=== PATIENT | female | born 1935 | race Caucasian/White ===

== ENCOUNTER → 2023-09-04 13:35 | Outpatient (REF) | payer OTHER, SELFPAY | LOC: MRI 3T 13:35 | PROVIDERS: ATTENDING PHYSICIAN Psychiatry & Neurology Neurology; FAMILY PHYSICIAN Internal Medicine | DX: R44.1 Visual hallucinations (principal); R41.3 Other amnesia; G44.89 Other headache syndrome | CPT/HCPCS: 70551 ==

== ENCOUNTER 2025-03-14 17:56 | Inpatient (IN) | payer OTHER, SELFPAY ==
[2025-03-14 13:07] VITALS: BP 180/45
[2025-03-14] MEDS: ADACEL 0.5 ML IM (14:10)
[2025-03-14 16:00] VITALS: BP 164/59
--- NOTE | 2025-03-14 16:03 | ED.GENMED ---
History of Present Illness
General
Chief Complaint: Fall
Time Seen by Provider: 03/14/25 13:08
Nursing documentation reviewed up to this point in time: agreed with
History of Present Illness
History of Present Illness:
89-year-old female brought to the ER by EMS for evaluation after she fell. Patient is unsure of whether she tripped or slipped. She did not lose consciousness although she did strike her head. She was wearing her sunglasses at time of impact.
She denies headache. No change in vision. No vomiting. She reports pain and tingling to her left upper extremity. She reports that she had a significant injury in her youth to her elbow and at some point was told that it was fortunate her arm
was not amputated. She does have a prior history of fracture to the left wrist also. She is typically able to range her arm and ambulate independently. She is not on any blood thinners. She denies any pain to her lower extremities. She had been
feeling well prior to injury today.
Review of Systems
Review of Systems
Allergies reviewed?: Yes
Phy Exam
Physical Exam
Physical Exam:
Patient is awake, alert, appears uncomfortable but in no acute distress, 2 cm irregular laceration present above left eyebrow with vigorous arterial bleeding, controlled with direct pressure, mild ecchymosis surrounding the left eye, PERRL, EOMI,
mucous membranes moist, dentition intact, no pain with mouth opening, no pain on palpation of cervical spine, heart regular rate and rhythm without murmurs or ectopy, lungs are clear to auscultation without wheezes rales or rhonchi, abdomen is soft
and nontender, left elbow with significant deformity and diffuse pain on palpation, ecchymosis present over the dorsal elbow, chronic appearing deformity present to the left wrist which is nontender on palpation, brisk cap refill present to the
digits of the left hand with intact sensation to light touch, right upper extremity is normal in comparison, pelvis is stable to rock, moving bilateral lower extremities without any pain or limitation, GCS is 15
Course
Orders/Labs/Results
Orders:
Orders
03/14/25 Breakfast
Regular
03/14/25 13:00
Lidocaine/Epinephrine/Tetracai [Let Topical Anesthetic Gel] 3 ml .ROUTE .STK-MED ONE
03/14/25 13:39
CT Cervical Spine W/o Iv Contr Urgent
Comment:
Reason For Exam: trauma
CT Facial Bones W/o Iv Contras Urgent
Comment:
Reason For Exam: trauma
CT Head W/o Iv Contrast Urgent
Comment:
Reason For Exam: trauma
CR Elbow - Left Min 2 View Urgent
Reason For Exam: trauma
CR Wrist - Left Min 3 Views Urgent
Reason For Exam: trauma
03/14/25 13:40
Tetanus/Diphth/Acelpertussis [Adacel] 0.5 ml IM .ONCE ONE
03/14/25 16:04
Morphine Sulfate 2 mg IV NOW STA
03/14/25 16:39
Consult Orthopedic [ORTHOPEDIC CONSULT] Urgent
Consulting Provider: Angel Alfred
Was physician already notified: Yes
03/14/25 16:57
Complete Blood Count/No Diff Urgent
Comprehensive Metabolic Panel Urgent
03/14/25 17:[address] Non Medication Order As Directed
Physician Order: please complete the med rec. thanks
03/14/25 17:22
Admit/Transfer Patient As Directed
Co-Sign Provider:
Level of Care: Inpatient admission
Assign to:: Medical/Surgical
Physician / Group: elma
Diagnosis: olecranon fracture
Reason for Hospitalization: olecranon fracture
Expected length of stay greater than two midnights?: Yes
ELOS- Estimated Length of Stay in days: 3
I certify the patient meets the requirements for IP care: Yes
PRN Pain Medication Management As Directed
May give lesser potent ordered pain med per pt: Yes
preference::
Protocol:: Medication orders for pain may be administered in a
manner that supports deferring to patient preference
when the pt is:
- Requesting an ordered lesser potent pain medication.
Least to most potent pain medications are defined
as: acetaminophen < NSAID < tramadol < opioids
(morphine, oxycodone, hydromorphone).
- Requesting a lesser dose of the same medication IF
ORDERED.
- Requesting a less intrusive route of administration
if both routes are prescribed by the provider (PO <
IV).
03/14/25 17:23
Code Status As Directed
Resuscitation Status: Full Code
03/14/25 17:27
Elbow, 2 View, Right [CR Elbow - Right Min 2 View] Urgent
Comment:
Reason For Exam: post reduction
Abnormal Lab Results
03/14/25
16:57
WBC 12.2 H 10^3/uL
(4.8-10.8)
RBC 3.71 L 10^6/uL
(4.20-5.40)
Hgb 10.7 L g/dL
(12.0-16.0)
Hct 30.8 L %
(37.0-47.0)
03/14/25 16:57
Vital Signs
Initial and Last Documented VS:
Initial Vital Signs
Pulse Resp BP Pulse Ox
64 16 180/45 97
03/14/25 13:07 03/14/25 13:07 03/14/25 13:07 03/14/25 13:07
Last Documented Vital Signs
Pulse Resp BP Pulse Ox
68 18 164/59 97
03/14/25 16:00 03/14/25 16:00 03/14/25 16:00 03/14/25 16:04
Procedures
Laceration Closure
Left Upper Face:
Status of Wound: clean
Size of Wound in cm: 2.5
Description of Wound Edges: flap-well vascularized
Preparation: cleaned with soap & water and cleaned with saline
Anesthesia: 1% Lidocaine with epi and Topical-LET
Revision/Debridement: routine- no revision
Wound exploration: explored to base- no FB
Type of Closure: single layer closure and running stitch
Skin Closure Material: 5-0 nylon
Number of sutures: 11
Additional information:
Bleeding controlled after wound closed
Joint/Fracture Reduction
Left Elbow:
Indication for procedure:: Fracture dislocation
Procedure completed by: Myself
Anesthesia/sedation: 1% Lidocaine (10 cc hematoma block)
Injury was: closed
Further treatement: needs further treatment
Post reduction exam: unstable
Capillary Refill: normal
Normal distal neurovascular exam?: Yes
Additional information:
Traction countertraction applied with perceived unsuccessful attempt in reduction. Posterior splint and sling then applied
MDM/Problems Addressed
Differential Diagnosis Includes:
Differential diagnosis to consider but not limited to sprain, strain, fracture, occult intracranial injury, occult C-spine fracture along with other etiologies considered
Chronic conditions affecting care:
Hypertension, advanced age
*Radiology
Radiology exam reviewed: preliminary read by ED provider (I independently viewed and interpreted x-ray of the left elbow showing displaced olecranon fracture with dislocation of the humerus. I independently viewed and interpreted x-rays of the left
wrist showing chronic deformity, no fracture)
*Pulse Oximetry
SaO2: 97
Oxygen Mode of Delivery: Room air
Patient hypoxic: no
*Critical Care Note
Total Time (30-74mins, 75-104mins- exclusive of procedures): Not Applicable
Update Note
Update Note:
Patient tolerated laceration repair well. Once x-rays results available, I discussed with patient and daughter present bedside need for admission for surgical repair. I was able to speak with on-call surgeon, Dr. Alfred, to review x-ray images.
He would advise attempted reduction but would place patient on the OR schedule for tomorrow. I reviewed this information with the hospitalist, who came to evaluate the patient as I was completing splinting for the patient. Patient tolerated
procedure well. Pain controlled with morphine administered.
ED Attending Note
-
Portions of this chart may have been created with voice recognition software.� Occasional wrong word or��sound alike� substitutions may have occurred due to the inherent limitations of voice recognition software.
Discharge Plan
Departure
Patient Disposition: Admit
Date of Disposition: 03/14/25
Time of Disposition: 16:40
Presentation/result/management discussed w/ accepting MD/DO: Hospitalist
Discharge Problem:
Closed fracture dislocation of elbow, Facial laceration, CHI (closed head injury)
Prescriptions:
No Action
lisinopril 10 mg tablet
10 mg PO DAILY
hydrochlorothiazide 25 mg tablet
25 mg PO DAILY
mirtazapine 7.5 mg tablet
7.5 mg PO HS
Referrals:
Martin Morrison MD [Family Provider, Internal Medicine]
Interventions
Interventions:
*Risk Screen - Suicide Last Done: 03/14/25 14:00
*General Assessment Last Done: 03/14/25 14:00
*Neglect/Abuse Screening Last Done: 03/14/25 14:00
*ED- Fall Risk Assessment Last Done: 03/14/25 14:00
ED-Musculoskeletal Assessment Last Done: 03/14/25 14:00
ED- Neurological Assessment Last Done: 03/14/25 14:00
ED-Skin Assessment Last Done: 03/14/25 14:00
Discharge Date and Time
Print Language: PERSIAN
[2025-03-14] MEDS: MORPHINE SULFATE 2 MG IV ×2 (16:51→22:43)
--- NOTE | 2025-03-14 17:03 | HPS.HSE ---
Family Physician
-
Family Physician: Martin Morrison
Chief Complaint
-
fall
History of Present Illness
89-year-old female with PMH For HTN presented to us s/p fall. Patient tripped and fell. She hit her head on the floor. she did not lose consciousness. She denies headache. No change in vision. No vomiting. She reports pain and tingling to her
left upper extremity. Patient denied any fever, chills, cough, congestion. Patient denied any chest pain or short of breath. Patient denied any abdominal pain, nausea, vomiting or diarrhea. Patient denied dysuria hematuria.
Patient received dose of morphine, tetanus in ER. Admitting for further management
Medical History
Past Medical History
Past Medical History: Reports Other
Additional Past Medical History:
Hypertension, depression, osteopenia, allergic rhinitis, cervical radiculitis, hypertension, cataract, concussion
Past Surgical History: Reports Other
Additional Past Surgical History:
Appendectomy, knee surgery
Social History
Tobacco: Non-smoker
Alcohol: None
Drug: None
Living: Assisted Living
Family History
Family History: Not pertinent
Allergies / Home Medications
Allergies reflects when Allergies were last updated in [facility].
Home Medications with original date entered in [facility]
Allergy/Medication List:
Allergies
Allergy/AdvReac Type Severity Reaction Status Date / Time
Sulfa (Sulfonamide Allergy Unknown Unknown Verified 03/14/25 13:12
Antibiotics)
Review of Systems
-
Constitutional: Reports No Symptoms
EENT: Reports No Symptoms
Respiratory: Reports No Symptoms
Cardiac: Reports No Symptoms
Abdomen/GI: Reports No Symptoms
: Reports No Symptoms
Musculoskeletal: Reports Other (Left arm pain)
Skin: Reports No Symptoms
Neurological: Reports No Symptoms
Endocrine: Reports No Symptoms
Hematologic/Lymphatic: Reports No Symptoms
Psych: Reports No Symptoms
Physical Exam
Vital Signs
Vital Signs
Pulse Resp BP Pulse Ox
68 18 164/59 97
03/14/25 16:00 03/14/25 16:00 03/14/25 16:00 03/14/25 16:04
Physical Exam
General: Well Developed, Well Nourished and No Apparent Distress
HEENT: NormoCephalic, Moist mucous membranes and Atraumatic
Respiratory: Clear
Cardiac: S1/S2 and Regular Rhythm; No Murmur or Rub
GI: Soft, Non Tender, Non Distended and Normal Bowel Sounds; No Organomegaly
Rectal: Deferred by Provider
Musculoskeletal: No Clubbing, No Cyanosis, No Edema and Other (dressing the forehead, sling on left arm )
Skin: No Rash
Neuro: Nonfocal/grossly intact
Data Reviewed
-
Diagnostic Radiology: Report Reviewed by me
CT Scan: Report Reviewed by me
Impression/Plan
-
# Acute displaced intra-articular fracture of the olecranon
- Orthopedics consulted
-Patient received a dose of tetanus in ER
-Tylenol, Ultram for pain
-PT/OT consult
-Will keep patient n.p.o. after midnight for possible surgical intervention in the morning
- Wrist x-ray with impression Moderate soft tissue swelling in the ulnar and dorsal left wrist.
2. Chronic healed fracture of the distal radial metaphysis.
3. Chronic nonunited fracture of the ulnar styloid.
4. 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
5. Scapholunate ligament tear.
- Head CT with impression No CT evidence for acute intracranial hemorrhage.
2. MODERATE BILATERAL TEMPORAL LOBE VOLUME LOSS suggesting a chronic neurodegenerative disease (possibly Alzheimer's dementia).
3. Mild white matter leukoaraiosis in both cerebral hemispheres.
- Facial bone CT with impression No CT evidence for acute intracranial hemorrhage.
2. MODERATE BILATERAL TEMPORAL LOBE VOLUME LOSS suggesting a chronic neurodegenerative disease (possibly Alzheimer's dementia).
3. Mild white matter leukoaraiosis in both cerebral hemispheres.
- Elbow x-ray with impression of Acute posterior dislocation of the left elbow.
2. Acute displaced intra-articular fracture of the olecranon.
3. Large acute soft tissue laceration posterior to the olecranon.
- Cervical spine CT with impression of Moderate kyphosis at C6/C7.
2. 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
3. Severe right-sided facet joint arthrosis at C4/C5 causing severe right neural foraminal narrowing. 4 mm anterolisthesis of C4 on C5.
4. Moderate left-sided facet joint arthrosis at C3/C4 causing severe left neural foraminal narrowing.
5. Mild multilevel cervical spinal cord compression and central canal stenosis.
# Essential hypertension
- Metoprolol, lisinopril continued
- Hold HCTZ
# DVT prophylaxis
- SCDs
# CODE STATUS
- Full code
[2025-03-14 17:20] LABS: Hematocrit 30.8 % (37.0-47.0); Hemoglobin 10.7 g/dL (12.0-16.0); Mean Corp Hgb Conc. 34.7 g/dL (33.0-37.0); Mean Corpuscular Volume 83.0 fL (81.0-99.0); Platelet Count 270 10^3/uL (130-400); Red Cell Dist. Width 14.1 % (11.5-14.5)
--- NOTE | 2025-03-14 17:30 | W.PN.UPDATE ---
Update Note
Progress Note Update
I have personally examined the patient and agree with H&P written on the same date. In addition:
89yo F with PMHX of dementia, insomnia, HTN came after the fall w/o LOC at home, found tissue concussion of L eyebrow and L shoulder dislocation with olecranon Fx with posterior laceration. Patient with no recnet changes in meds and no recent new
complains. Active and has no Hx of TX, cardac stent, no recent respiratory infection and no Hx of COPD/Asthma. Patient is not on any anticoagulants
A/P:
#Acute posterior dislocation of the left elbow
#Acute displaced intra-articular fracture of the olecranon with posterior laceration
complete pre-OP w/u with baseline EKG
Patient is low-intermediate risk for low-moderate risk surgery
Stop HCTZ before Sx, further monitoring based on EKG
Sling in ED
Ortho consult
Pain mgmt
PT/OT when able
#Hyponatremia
most likely 2/2 HCTZ
IVF NS
follow BMP
Check Uosm, Melissa, UA
#Essential HTN
Consider switching HCTZ to avoid dehydration in 89yo F
#Moderate Kyphosis C6/C7
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
asymptomatic
PT/OT
tylenol
#Anemia
anemia w/u
#Mild leukocytosis
possibly reactive
with no fever and no complains - follow CBC off Abx
#Dementia, unspecified
#Insomnia
cont home meds
frequent re-orientation to avoid delirium
DVT ppx hep
We have spent at least 77min reviewing chart, test results, communication with consultants and providing direct patient care
[2025-03-14 17:34] LABS: ALT (SGPT) 16 U/L (0-35); AST (SGOT) 27 U/L (14-36); Albumin 3.9 g/dl (3.5-5.0); Alkaline Phosphatase 82 U/L (38-126); Blood Urea Nitrogen 20 mg/dl (7-17); Calcium 9.0 mg/dl (8.4-10.2); Carbon Dioxide 30 mmol/L (22-30); Chloride 94 mmol/L (98-107); Glucose 108 mg/dl (70-99); Potassium 3.8 mmol/L (3.5-5.1); Sodium 129 mmol/L (135-145); Total Protein 6.0 g/dl (6.3-8.2); eGFR > 60.00
[2025-03-14] MEDS: NSS 500 IV (17:49)
[2025-03-14 18:31] LABS: Glucose - Point of Care 124 mg/dl (70-99)
[2025-03-14] MEDS: ULTRAM 50 MG PO (19:37)
[2025-03-14 20:56] VITALS: BP 122/37
[2025-03-14 21:00] VITALS: BP 118/40; BMI 30.3
[2025-03-14] MEDS: SENOKOT 17.2 MG PO (22:02)
[2025-03-14] MEDS: TYLENOL 650 MG PO (22:02)
[2025-03-14] MEDS: COLACE 100 MG PO (22:02)
[2025-03-14] MEDS: REMERON 7.5 MG PO (22:03)
[2025-03-14 23:00] VITALS: BP 125/46
[2025-03-15] VITALS (9 sets, daily range): BP systolic 103–186; BP diastolic 52–89
[2025-03-15] MEDS: TYLENOL 650 MG PO ×3 (01:36→13:19)
--- NOTE | 2025-03-15 02:13 | PTCARENOTE ---
pt was rec'vd from ER at aprox 20:59, with sling on LUE and wrapped with roxann, + pulses and cap refill <2. Pts daughter at the bedside, both were oriented to unit.
--- NOTE | 2025-03-15 02:15 | PTCARENOTE ---
pt order for UA noted, pt refsuing the need to use restroom and ''no you can not st cath me. I will let you know when I have to pee''.
[2025-03-15 02:32] LABS: Blood Urea Nitrogen 23 mg/dl (7-17); Calcium 9.0 mg/dl (8.4-10.2); Carbon Dioxide 28 mmol/L (22-30); Chloride 97 mmol/L (98-107); Estimated Creatinine Clearance 50 ml/min; Glucose 126 mg/dl (70-99); Potassium 3.9 mmol/L (3.5-5.1); Sodium 131 mmol/L (135-145); eGFR > 60.00
[2025-03-15] MEDS: TYLENOL PO ×3 (05:15→22:25)
--- NOTE | 2025-03-15 05:48 | PTCARENOTE ---
urine collected 05:30 but no BM for occult blood
[2025-03-15 05:53] LABS: Urine Character Slightly Cloudy (Clear)
[2025-03-15 06:29] LABS: Urine White Cell 50-60 /HPF (0-5)
[2025-03-15 08:09] LABS: Reticulocyte Count 2.2 % (0.4-2.8)
[2025-03-15] MEDS: ZESTRIL 10 MG PO (08:15)
[2025-03-15] MEDS: MORPHINE SULFATE 1 MG IV (08:16)
[2025-03-15] MEDS: SENOKOT PO (08:16)
[2025-03-15] MEDS: STERILE WATER FOR INJECTION 10 ML IV (08:16)
[2025-03-15] MEDS: COLACE PO (08:16)
[2025-03-15] MEDS: ROCEPHIN 1000 MG IV (08:16)
[2025-03-15 08:29] LABS: Iron 23 ug/dl (37-170); LDH 177 U/L (120-246)
--- NOTE | 2025-03-15 08:32 | W.PN.HOSP.TC ---
Today's Communication/Plan
-
for OR today
d5NS
ceftriaxone
Assessment / Plan
Assessment / Plan
89yo F with PMHX of dementia, insomnia, HTN came after the fall w/o LOC at home, found tissue concussion of L eyebrow and L shoulder dislocation with olecranon Fx with posterior laceration. Also possible accidental UTI
A/P:
#Acute posterior dislocation of the left elbow
#Acute displaced intra-articular fracture of the olecranon with posterior laceration
baseline EKG with no clinically significant ST changes or TWI, no signs of LVH on EKG
Patient is low-intermediate risk for low-moderate risk surgery
Stop HCTZ before Sx
Sling in ED
Ortho consult
Pain mgmt
PT/OT when able
#Hyponatremia
most likely 2/2 HCTZ
IVF NS improving sodium level
follow BMP
#UTI
Ceftriaxone pending Ucx
#Essential HTN
Consider switching HCTZ to avoid dehydration in 89yo F
#Moderate Kyphosis C6/C7
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
asymptomatic
PT/OT
tylenol
#Anemia
anemia w/u
#Mild leukocytosis
possibly reactive
with no fever and no complains - follow CBC off Abx
#Dementia, unspecified
#Insomnia
cont home meds
frequent re-orientation to avoid delirium
DVT ppx hep
We have spent at least 57min reviewing chart, test results, communication with consultants and providing direct patient care
Anticipated Discharge: 24 - 48 hours
Subjective/Interval History
-
Date of Service: March 15, 2025
Objective Data
-
Labs:
Laboratory Results
03/15/25
01:32
Sodium 131 L
Potassium 3.9
Chloride 97 L
Carbon Dioxide 28
BUN 23 H
Creatinine 0.7
Glucose 126 H
Calcium 9.0
Vital Signs:
Vital Signs
Temp Pulse Resp BP Pulse Ox
98.4 F 71 18 173/53 95
03/15/25 07:45 03/15/25 08:15 03/15/25 07:45 03/15/25 08:15 03/15/25 07:45
I&O
03/14/25 03/15/25 03/16/25
06:59 06:59 06:59
Intake Total 240 / 240
Balance 240 / 240
Review of Systems
-
History Source: Patient
All other systems: Reviewed and negative
Physical Exam
-
General: Comfortable
HEENT: Normocephalic
Cardiac: Regular Rhythm
GI: Soft
Musculoskeletal: No Clubbing, No Cyanosis and No Edema
Neuro: Awake, Alert, Oriented and AO x 3
Psych: Calm
--- NOTE | 2025-03-15 08:34 | CON.ORTHO ---
Consultation
-
Date/Time Consultation Requested: 03/14/2025; time unknown
Date/Time Consultation Performed: 03/15/2025; 0700
Requesting Provider: unknown
Performing Provider: Luana Bentley PA-C
Reason for Consultation: Left olecranon fracture
Consultation - Orthopedics
History
Ms. Bess is an 89 year old female with PMH of dementia, insomnia, and HTN seen today for her left elbow. She reports she tripped and fell while at home. She did hit her head, but did not lose consciousness. She was brought to via EMS where
x-rays revealed a displaced olecranon fracture. She is resting comfortably in bed this morning. She does report the elbow is quite painful. Other than her black eye and head injury, she denies pain elsewhere. It does also sound as though she had a
laceration near her olecranon which was repaired in the ED. Her daughter was present at the bedside for the duration of our visit.
Allergies / Home Medications
Allergy/AdvReac Type Severity Reaction Status Date / Time
Sulfa (Sulfonamide Allergy Unknown Unknown Verified 03/14/25 13:12
Antibiotics)
�Medication �Instructions �Recorded
Metoprolol Succinate Er 25 mg PO 4-8XD HTN 03/14/25
hydrochlorothiazide 25 mg tablet 25 mg PO DAILY Fluid 03/14/25
Retention/Swelling
lisinopril 10 mg tablet 10 mg PO DAILY Blood Pressure 03/14/25
mirtazapine 7.5 mg tablet 7.5 mg PO HS Mental Health/Anxiety 03/14/25
Vital Signs / Lab Results
Temp Pulse Resp BP Pulse Ox
98.4 F 71 18 173/53 95
03/15/25 07:45 03/15/25 08:15 03/15/25 07:45 03/15/25 08:15 03/15/25 07:45
03/14/25 16:57
03/15/25 01:32
XR Left Elbow IMPRESSION:
1. Acute posterior dislocation of the left elbow.
2. Acute displaced intra-articular fracture of the olecranon.
3. Large acute soft tissue laceration posterior to the olecranon.
XR Left Wrist IMPRESSION:
1. Moderate soft tissue swelling in the ulnar and dorsal left wrist.
2. Chronic healed fracture of the distal radial metaphysis.
3. Chronic nonunited fracture of the ulnar styloid.
4. 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
5. Scapholunate ligament tear.
Driected exam of the left upper extremity reveals long arm splint in place. Expected edema of the left fingers. Patient able to wiggle fingers. Sensation intact to light touch. Capillary refill <2 seconds.
Assessment / Plan
Left olecranon fracture
--Unfortunately, Johana sustained an olecranon fracture in her fall. This is displaced, and I recommend proceeding with surgical repair of her fracture. The risks, benefits, alternatives, recovery process and potential complications of open
reduction internal fixation left olecranon fracture were discussed. She and her daughter verbalized understanding and would like to proceed with surgery. Surgical and blood consent signed and placed on patient chart. Tentative plan to proceed with
OR today under the direction of Dr. Alfred.
--Maintain splint until surgery.
--NWB to LUE.
--Pain control prn. Ice and elevation for edema control.
--Abx ordered to OR.
--Orthopedics will continue to follow along.
[2025-03-15 08:38] LABS: Total Iron Binding Capacity 268 ug/dl (265-497)
[2025-03-15 09:01] LABS: Ferritin 148.0 ng/ml (11.1-264.0)
[2025-03-15 09:33] LABS: Folate > 20.0 ng/ml (2.76-20); Vitamin B12 817 pg/ml (239-931)
--- NOTE | 2025-03-15 09:41 | CM ---
CM following re: discharge planning.
Reviewed pt's chart, met with pt and daughter Stephenie at bedside.
Pt is an 89 year old female, admitted with primary dx of Left olecranon fracture as a result of her fall. Per Ortho, OR today.
Pt reports she lives alone in an independent apartment at the [facility], moved there in 2020, has 2 supportive children. Pt described herself as independent in all areas [employer], has housekeeping services at her apartment, daughter and son
help as needed. No DME, VN or SNF history.
PT and OT will evaluate the pt after surgery to determine a level of care at discharge. Pt expressed her desire to return back home upon the discharge with VN services and she preferred [facility]. CM will make a referral to [facility] after surgery and PT/OT
evaluations and recommendations.
PCP: Martin Morrison
Pharmacy: [facility].
D/C plan: most likely home with [facility], family and [facility] staff support. Awaiting PT/OT evaluations and recommendations
CM will follow with discharge plan updates as hospitalization progresses
[2025-03-15] MEDS: D5/0.9% SODIUM CHLORIDE 1000 IV (09:45)
[2025-03-15] MEDS: FERRLECIT 110 MG IV (13:59)
--- NOTE | 2025-03-15 20:24 | W.IMMPOSTOP ---
Surgical Immed Post Op Note
-
Primary Surgeon: Angel Alfred MD
Assisting Surgeon:
Pre-op Diagnosis: left olecranon fracture dislocation
Post-op Diagnosis: left olecranon fracture dislocation
Procedure Performed: ORIF left olecranon, closed reduction left elbow
Anesthesia Type:general with regional
Specimen / Cultures: none
Estimated Blood Loss: 25mL
Complications: none apparent
Operative Findings: left olecranon fracture dislocation
Tourniquet time: 72 minutes @ 250 mmHg
Implants: Isela Variax2 4-hole olecranon plate
Operative dictation #:[id number]
--- NOTE | 2025-03-15 21:33 | PTCARENOTE ---
21:14 pt rec'vd from PACU L elbow ORIF sx site assessed with PACU nurse , +pulses, +CMS , hand edematous , sling in place . Pt arousable to speech, pt's daughter notified. VS WNL.
[2025-03-15] MEDS: COLACE 100 MG PO (22:02)
[2025-03-15] MEDS: SENOKOT 17.2 MG PO (22:02)
[2025-03-15] MEDS: REMERON 7.5 MG PO (22:04)
[2025-03-16] MEDS: ANCEF 5 IV (02:00)
[2025-03-16] MEDS: D5/0.9% SODIUM CHLORIDE 1000 IV (02:48)
--- NOTE | 2025-03-16 02:48 | DOWNTIME ---
There was a [employer] Downtime on 03/16/2025 from 0100 to 03/16/2025 at 0215. Downtime documentation of patient's care, including medication administrations, has been reconciled in the electronic record per guidelines. Refer to the
patient's paper chart under the miscellaneous tab to see printed paper medication records and downtime forms.
[2025-03-16 03:00] VITALS: BP 154/56
--- NOTE | 2025-03-16 07:17 | W.PN.ORTHO ---
Today's Communication / Plan
-
89 yo F POD1 ORIF left olecranon fracture under the direction of Dr. Alfred
--Strict non-weight bearing to left upper extremity. Sling for immobilization and comfort, though patient would likely benefit from shoulder immobilizer. Order placed. We appreciate the assistance of PT/OT.
--Maintain splint to LUE.
--Pain control prn. Ice and elevation for edema control.
--Hgb pending this AM. continue to monitor.
--Outpatient follow up at 2 weeks post-op. Case management consult for dc planning.
--Orthopedics will continue to follow along.
Assessment
.
Distal Motor Intact: Yes
Dressing:
Clean, dry and intact.
Plan
.
Surgery / Date: ORIF L apolinar, Tima, 03/15
Activity:
Out of bed.
PT/OT
Subjective
.
.:
Ms. Bess is POD1 following her ORIF left olecranon fracture performed by Dr. Alfred. She is resting comfortably in bed this morning, and sleeping soundly. Her daughter was present at the bedside. Pain has been well controlled overnight.
Vital Signs and Labs
.
Vital Signs and Labs:
Temp Pulse Resp BP Pulse Ox
98.0 F 85 16 154/56 93
03/16/25 03:00 03/16/25 03:00 03/16/25 03:00 03/16/25 03:00 03/16/25 03:00
Physical Exam
-
Directed exam of the left upper extremity reveals post-operative splint in place. Expected post-operative edema of the left hand. Patient able to wiggle fingers. Sensation intact to light touch. Capillary refill <2 seconds.
[2025-03-16 07:35] VITALS: BP 163/65
[2025-03-16 08:06] LABS: Hematocrit 26.2 % (37.0-47.0); Hemoglobin 8.8 g/dL (12.0-16.0); Mean Corp Hgb Conc. 33.6 g/dL (33.0-37.0); Mean Corpuscular Volume 84.2 fL (81.0-99.0); Nucleated Red Blood Cells % 0 %; Platelet Count 233 10^3/uL (130-400); Red Cell Dist. Width 14.4 % (11.5-14.5)
[2025-03-16 08:08] LABS: INR 1.09; PT 14.7 Sec (11.4-14.6)
[2025-03-16 08:09] LABS: APTT 31.6 Sec (23.4-35.0)
[2025-03-16 08:24] LABS: ALT (SGPT) 13 U/L (0-35); AST (SGOT) 20 U/L (14-36); Albumin 3.3 g/dl (3.5-5.0); Alkaline Phosphatase 62 U/L (38-126); Blood Urea Nitrogen 16 mg/dl (7-17); Calcium 8.5 mg/dl (8.4-10.2); Carbon Dioxide 27 mmol/L (22-30); Chloride 101 mmol/L (98-107); Estimated Creatinine Clearance 58 ml/min; Glucose 247 mg/dl (70-99); Potassium 3.9 mmol/L (3.5-5.1); Sodium 133 mmol/L (135-145); Total Protein 5.5 g/dl (6.3-8.2); eGFR > 60.00
[2025-03-16] MEDS: SENOKOT 17.2 MG PO (08:46)
[2025-03-16] MEDS: COLACE 100 MG PO (08:46)
[2025-03-16 10:30] VITALS: BP 146/75; BP 165/82; PULSE 117; O2SAT 98
[2025-03-16 11:14] VITALS: BP 146/75; BP 165/82; PULSE 110; O2SAT 97
--- NOTE | 2025-03-16 11:14 | W.PN.HOSP.TC ---
Addendum entered and electronically signed by Gonzalo Zayas MD 03/16/25 15:54:
Dont use billing under this PN, use d/c summary billing instead
Original Note:
Today's Communication/Plan
-
US RUE and D/C
Assessment / Plan
Assessment / Plan
89yo F with PMHX of dementia, insomnia, HTN came after the fall w/o LOC at home, found tissue concussion of L eyebrow and L shoulder dislocation with olecranon Fx with posterior laceration. s/p ORIF left olecranon, closed reduction left elbow on
03/15/25. UTI ruled out. DEON to be followed with [facility] and patient will have to get eventual colonoscopy - daughter informed on this and agreeable with approach
A/P:
#Acute posterior dislocation of the left elbow
#Acute displaced intra-articular fracture of the olecranon with posterior laceration
baseline EKG with no clinically significant ST changes or TWI, no signs of LVH on EKG
Patient is low-intermediate risk for low-moderate risk surgery
Stop HCTZ before Sx
Sling in ED
Ortho consult: s/p ORIF left olecranon, closed reduction left elbow on 03/15/25
Pain mgmt
PT/OT: as per CM - recommended home PT
#RUE swelling
2/2 IV access, remove catheter, US RUE
#bruising around L eye
swelling decreased, no vision changes reported
#Hyponatremia
most likely 2/2 HCTZ
IVF NS improving sodium level
follow BMP
#UTI ruled out
Ucx neg for single infection source, patient asymptomatic, most likely asymptomatic bacteriuria, so no indication for treatment
#Essential HTN
stop HCTZ, increase lisinopril, BMP in 2 weeks with PCP
#Moderate Kyphosis C6/C7
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
asymptomatic
PT/OT
tylenol
#Anemia
chronic DEON on acute blood loss 2/2 trauma and hemodilutional 2/2 IVF
No overt ongoing bleeding
CBC in 1 week
IV iron
Colonoscopy recommended - discussed with daughter, who will seek referral to GI from PCP
#Mild leukocytosis
reactive
resolved
#Dementia, unspecified
#Insomnia
cont home meds
frequent re-orientation to avoid delirium
DVT ppx hep
Fu code
We have spent at least 37min reviewing chart, test results, communication with consultants and providing direct patient care
Anticipated Discharge: Within 24 hours
Subjective/Interval History
-
Date of Service: March 16, 2025
Objective Data
-
Labs:
Laboratory Results
03/16/25
07:21
WBC 10.6
Hgb 8.8 L
Hct 26.2 L
Plt Count 233
PT 14.7 H
INR 1.09
APTT 31.6
Sodium 133 L
Potassium 3.9
Chloride 101
Carbon Dioxide 27
BUN 16
Creatinine 0.6
Glucose 247 H
Calcium 8.5
Total Bilirubin 0.3
AST 20
ALT 13
Alkaline Phosphatase 62
Vital Signs:
Vital Signs
Temp Pulse Resp BP Pulse Ox
97.5 F 83 18 163/65 96
03/16/25 07:35 03/16/25 07:35 03/16/25 07:35 03/16/25 07:35 03/16/25 07:35
I&O
03/15/25 03/16/25 03/17/25
06:59 06:59 06:59
Intake Total 240 / 240 830 / 830
Balance 240 / 240 830 / 830
Review of Systems
-
History Source: Patient
All other systems: Reviewed and negative
Physical Exam
-
General: No Apparent Distress
HEENT: Other (bruise around L eye, no swelling)
Respiratory: Clear to Auscultation
Cardiac: Regular Rhythm
Musculoskeletal: No Clubbing, No Cyanosis and Edema, Right Upper Extrem
Neuro: Awake, Alert, Oriented and AO x 3
Psych: Calm
[2025-03-16 11:20] VITALS: BP 152/70
[2025-03-16] MEDS: ANCEF IV (11:31)
[2025-03-16] MEDS: STERILE WATER FOR INJECTION IV (11:31)
[2025-03-16] MEDS: ROCEPHIN IV (11:31)
[2025-03-16] MEDS: ZESTRIL PO (11:31)
--- NOTE | 2025-03-16 11:33 | CM ---
CM following re: discharge planning.
Reviewed pt's chart, met with pt and daughter Stephenie at bedside [phone].
Pt is POD#1 POD1 ORIF left olecranon fracture, continue supportive care.
According to pt is medically stable to be discharged today. Both pt and her daughter are aware, expressed their agreement. IMM reviewed, placed on chart, pt has a copy.
PT and OT evaluations noted - home PT/OT recommended. both pt and her daughter are aware and they preferred VN. A referral to [facility] made.
Pt lives alone in an independent apartment at the [facility], moved there in 2020, has 2 supportive children. Pt described herself as independent in all areas [employer], has housekeeping services at her apartment, daughter and son help as
needed.
Please fax discharge instructions to [facility] at [phone]
D/C plan: return back to [facility] with [facility], family and [facility] staff support. Daughter to transport.
--- NOTE | 2025-03-16 13:48 | VATNOTE ---
Pt's R wrist 20g IV infiltrated. R forearm swollen and painful. IV attempted x2 in pt's R hand, unsuccessful. Midline is an option, but preferred that pt gets U/S of R arm first. This was relayed to hospitalist and per hospitalist it's ok for pt to
forgo IV access for time being. Will continue to monitor.
[2025-03-16] MEDS: FEOSOL 325 MG PO (14:25)
[2025-03-16 15:20] VITALS: BP 102/66
--- NOTE | 2025-03-16 15:51 | W.DCSUMMARY ---
Discharge Summary
Discharge Data
Date of Admission: 03/14/25
Date of Discharge: 03/16/25
-
Pending Results: No
Hospital Course
89yo F with PMHX of dementia, insomnia, HTN came after the fall w/o LOC at home, found tissue concussion of L eyebrow and L shoulder dislocation with olecranon Fx with posterior laceration. s/p ORIF left olecranon, closed reduction left elbow on
03/15/25. UTI ruled out. DEON to be followed with PCP and patient will have to get eventual colonoscopy - daughter informed on this and agreeable with approach. Medicaslly stable to be d/c home with home PT as per PT/OT assessment
We have spent at least 37min reviewing chart, test results, communication with consultants and providing direct patient care
Patient was managed for:
#Acute posterior dislocation of the left elbow
#Acute displaced intra-articular fracture of the olecranon with posterior laceration
#RUE swelling
#bruising around L eye
#Hyponatremia
#UTI ruled out
#Essential HTN
#Moderate Kyphosis C6/C7
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
#DEON
#Mild leukocytosis
#Dementia, unspecified
#Insomnia
Discharge Plan
-
Patient Disposition: Home with Home Care
Discharge Diagnosis/Procedures: L shoulder Fx
Diet: Low Cholesterol
Activity: As tolerated
Blood Work: CBC and BMP in 1 week with family doctor
Other Services: PT
Referrals:
Angel Alfred MD [Active, Orthopedics] - in two weeks
Martin Morrison MD [Family Provider, Internal Medicine] - in less than 1 week
Referral Note: Schedule CBC and consider referral to colonoscopy
Prescriptions:
New
docusate sodium 100 mg Capsule
100 mg PO BID Qty: 60 0RF
ferrous sulfate [FeroSul] 325 mg (65 mg iron) Tablet
325 mg PO DAILY Qty: 30 0RF
lisinopril 10 mg Tablet
20 mg PO DAILY Qty: 60 0RF
Continued
mirtazapine 7.5 mg tablet
7.5 mg PO HS
Metoprolol Succinate Er
25 mg PO 4-8XD
Discontinued
lisinopril 10 mg tablet
10 mg PO DAILY
hydrochlorothiazide 25 mg tablet
25 mg PO DAILY
Discharge Orders:
Discharge Patient (As Directed); Ordered 03/16/25
Ordered By: Gonzalo Zayas
Discharge Date and Time
Print Language: ROMANIAN
== END 2025-03-16 17:51 | disposition home health service (06) | DRG 511 ==
LOC: 2 SOUTH 17:56
PROVIDERS: ADMITTING PHYSICIAN Internal Medicine; CONSULT PHYSICIAN Student in an Organized Health Care Education/Training Program; EMERGENCY PHYSICIAN Emergency Medicine; FAMILY PHYSICIAN Internal Medicine
PROC: 0PSL04Z Reposition Left Ulna with Internal Fixation Device, Open Approach (ICD-10-PCS; 2025-03-15)
PROC: 0RSMXZZ Reposition Left Elbow Joint, External Approach (ICD-10-PCS; 2025-03-15)
DX: S53.125A Posterior dislocation of left ulnohumeral joint, initial encounter (principal); E87.1 Hypo-osmolality and hyponatremia; F03.918 Unspecified dementia, unspecified severity, with other behavioral disturbance; F03.93 Unspecified dementia, unspecified severity, with mood disturbance; G95.20 Unspecified cord compression; S41.111A Laceration without foreign body of right upper arm, initial encounter; S52.032A Displaced fracture of olecranon process with intraarticular extension of left ulna, initial encounter for closed fracture; S00.12XA Contusion of left eyelid and periocular area, initial encounter; I10 Essential (primary) hypertension; M40.292 Other kyphosis, cervical region; M48.02 Spinal stenosis, cervical region; D72.829 Elevated white blood cell count, unspecified; G47.00 Insomnia, unspecified; F32.A Depression, unspecified; M47.819 Spondylosis without myelopathy or radiculopathy, site unspecified; W01.0XXA Fall on same level from slipping, tripping and stumbling without subsequent striking against object, initial encounter; Z88.2 Allergy status to sulfonamides; M85.80 Other specified disorders of bone density and structure, unspecified site; Z79.899 Other long term (current) drug therapy
CPT/HCPCS: 12011; 24675; 70450; 70486; 72125; 73070; 73080; 73110; 76000; 80048; 80053; 81003; 81015; 82570; 82607; 82728; 82746; 82962; 83540; 83550; 83615; 83935; 84300; 85025; 85027; 85045; 85610; 85730; 87086; 90471; 90715; 93005; 93971; 96374; 97163; 97167; 99285; C1713; J2916